=== PATIENT | female | born 1965 | race Two or more races ===

== ENCOUNTER 2017-12-23 11:01 | Emergency (ER) | payer BC ==
[2017-12-23 12:01] LABS: ADD MAN DIFF? NO
[2017-12-23] MEDS: ONDANSETRON PF 4 MG/2 ML VIAL. IV (12:04)
[2017-12-23] MEDS: IV NORMAL SALINE 1000ML BAG 1,000 ML IV (12:04)
[2017-12-23 12:12] LABS: BASO % 0 % (0-3); EOS # 0.1 x10^3/uL (0.0-0.7); EOS % 1 % (0-3); HEMATOCRIT 36.4 % (36.0-47.0); HEMOGLOBIN 12.5 g/dL (12.0-15.5); LYMPH # 2.3 x10^3/uL (1.0-4.8); LYMPH % 30 % (24-48); MEAN CORPUSCULAR HEMOGLOBIN 30 pg (25-35); MEAN CORPUSCULAR HGB CONC 34 g/dL (31-37); MEAN CORPUSCULAR VOLUME 89 fL (79-100); MONO # 0.7 x10^3/uL (0.0-1.1); MONO % 9 % (0-9); NEUT # 4.8 x10^3uL (1.8-7.7); NEUT % 60 % (31-73); PLATELET COUNT 202 x10^3/uL (140-400); RED BLOOD COUNT 4.11 x10^6/uL (3.50-5.40); RED CELL DISTRIBUTION WIDTH 12.6 % (11.5-14.5); WHITE BLOOD COUNT 7.9 x10^3/uL (4.0-11.0)
[2017-12-23 12:16] LABS: BARBITURATES NEG (NEG); BENZODIAZEPINES NEG (NEG); CANNABINOIDS NEG (NEG); COCAINE NEG (NEG); METHADONE NEG (NEG); OPIATES NEG (NEG); PHENCYCLIDINE NEG (NEG)
[2017-12-23 12:21] LABS: INR 0.9 (0.8-1.1)
[2017-12-23 12:25] LABS: AMPHETAMINE/METHAMPHETAMINE NEG (NEG); ETHANOL, URINE NEG (NEG)
[2017-12-23 12:32] LABS: TROPONINI < 0.017 ng/mL (0.000-0.055)
[2017-12-23 12:42] LABS: CKMB INDEX 0.9 % (0-4); CKMB MASS 1.6 ng/mL (0.0-3.6); CREATINE KINASE 185 U/L (26-192)
[2017-12-23 12:42] LABS: NT-PRO BNP 7 pg/mL (0-124)
[2017-12-23 12:58] LABS: ALBUMIN 3.8 g/dL (3.4-5.0); ALK PHOS 131 U/L (46-116); ALT (SGPT) 35 U/L (14-59); ANION GAP 8 (6-14); AST (SGOT) 23 U/L (15-37); BLOOD UREA NITROGEN 14 mg/dL (7-20); CALCIUM 8.9 mg/dL (8.5-10.1); CARBON DIOXIDE 29 mmol/L (21-32); CHLORIDE 104 mmol/L (98-107); CREATININE 0.7 mg/dL (0.6-1.0); DIRECT BILIRUBIN 0.1 mg/dL (0.0-0.2); GFR 87.9; GLUCOSE 95 mg/dL (70-99); LIPASE 170 U/L (73-393); MAGNESIUM 2.1 mg/dL (1.8-2.4); POTASSIUM 3.8 mmol/L (3.5-5.1); SODIUM 141 mmol/L (136-145); TOTAL BILIRUBIN 0.3 mg/dL (0.2-1.0); TOTAL PROTEIN 8.1 g/dL (6.4-8.2)
== END 2017-12-23 14:05 | disposition home or self-care (01) ==
LOC: ER 11:01
DX: R19.7 Diarrhea, unspecified (principal); R11.0 Nausea; Z90.710 Acquired absence of both cervix and uterus
CPT/HCPCS: 36415; 71045; 80048; 80076; 80307; 82553; 83690; 83735; 83880; 84484; 85025; 85610; 93005; 96361; 96374; 99285-25; J2405; J7030